=== PATIENT | male | born 2000 | race Caucasian/White ===

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

== ENCOUNTER 2020-08-26 19:14 | Emergency (ER) | payer SELFPAY ==
[2020-08-26] VITALS (10 sets, daily range): BP systolic 126–151; BP diastolic 64–85; PULSE 53–87; RESP 14–22; TEMP 36.6; O2SAT 93–100; BMI 20.3
--- NOTE | 2020-08-26 19:39 | XRR_ITS ---
PROCEDURE INFORMATION: Exam: XR Right Finger(s) Exam date and time: 08/26/2020 7:42 PM Age: 20 years old Clinical indication: Injury or trauma; Puncture; Middle finger; Injury date: 08/26/2020; Injury details: Moving wood - copperhead snake bit right hand - 3rd digit; Patient HX: Snake bite x today - right hand - 3rd digit TECHNIQUE: Imaging protocol: XR Right fingers. Views: Minimum 2 views. COMPARISON: No relevant prior studies available. FINDINGS: Bones/joints: No fracture is identified. Soft tissues: There is soft tissue swelling of the middle finger. No opaque foreign body is seen. XR/XR finger RT min 2V 11220 IMPRESSION: 1. Soft tissue swelling. 2. No fracture is identified.
--- NOTE | 2020-08-26 19:39 | W.ED.ANIMALB ---
HPI - Animal Bite General: Chief Complaint: Animal Bite Stated Complaint: snake bite Time Seen by Provider: 08/26/20 19:27 History of Present Illness: HPI narrative: Patient is a healthy 20-year-old male seen for snake bite to the right long finger. He is right-hand dominant. He states that he was lifting up a cinder block when a full-grown copperhead bit him on the pad of his distal right long finger. He had immediate pain which got worse with time. He arrives in emergency department roughly 30 minutes after experiencing the bite. He describes 10 of 10 pain which is worse with any motion of the finger. He states that the swelling is migrated to his hand and now he has pain in the adjacent fingers as well. She denies any allergies to medications and has no other known medical problems and has no other acute complaints. Review of Systems General: Reports: 10 or more systems reviewed and unremarkable except in HPI and below PFSH ED PFSH: Social History Smoking and tobacco status: current every day smoker Physical Exam Const: COMMON NORMALS: patient oriented x3 and alert GENERAL APPEARANCE: in distress (Mild) HENMT: COMMON NORMALS: normocephalic and atraumatic HEAD & SCALP: normocephalic and atraumatic Eye: COMMON NORMALS: Equal, round and reactive pupils present, EOMs intact bilaterally and no scleral icterus PUPIL: Yes Equal, round and reactive pupils present Resp: COMMON NORMALS: normal respiratory effort and No retractions Cardio: COMMON NORMALS: regular rate, regular rhythm and No murmurs present (Cardio) RATE: regular rate RHYTHM: regular rhythm GI: COMMON NORMALS: Normal to inspection, nondistended, normoactive bowel sounds present, Soft to palpation and non-tender PALPATION: Yes Soft to palpation Extremity: RIGHT UPPER EXTREMITY: Yes hand & digits OTHER: Right hand has several findings. Most prominently, his right long finger is mildly swollen and mildly pale, with worst pain with flexion of the digit. He prefers extension. There is mild swelling just proximal to the long finger on the dorsum of the hand. There is no erythema and no necrosis. Though the finger is swollen, it is not firm and I do not suspect compartment syndrome at this time. Neuro: COMMON NORMALS: patient oriented x3 SENSORIUM/ORIENTATION: Yes alert Skin: COMMON NORMALS: no rashes or lesions noted GENERAL SKIN EXAM: no rashes or lesions noted Course Vital Signs: Vital signs: Vital Signs Temperature 98.4 F 08/27/20 03:18 Pulse Rate 114 H 08/27/20 03:18 Respiratory Rate 17 08/27/20 03:18 Blood Pressure 134/95 08/27/20 03:18 Pulse Oximetry 96 08/27/20 03:18 MDM - Animal Bite MDM Narrative: Medical decision making narrative: Patient arrived in mild distress with copperhead envenomation of his distal right long finger. As time went on, swelling progressed to the hand and just above the wrist. He was given multiple doses of fentanyl for pain and then switched to Dilaudid. Coagulation factors and fibrinogen are normal. Vital signs remained stable. I do not suspect systemic toxicity nor do I suspect compartment syndrome of the fingers or hand. He was observed in the emergency department for greater than 6 hours during which time pain levels decreased and vital signs remained completely stable. He did form some hemorrhagic blisters on various parts of the finger which was benign, however despite the swelling, sensation remains intact and distal capillary refill is brisk. I do not feel he requires CroFab therapy nor admission to the hospital. As such, he was transitioned to oral morphine and he will be discharged with a prescription for the same and follow-up to general surgery to ensure that the swelling decreases in appropriate fashion. Return precautions were discussed at length and he knows he should return should he have worsening numbness, tingling, pain, or warmth and redness concerning for infection. He shows good understanding and agrees to the plan. Lab Data: Labs: Lab Results 08/26/20 08/26/20 08/26/20 Range/Units 19:25 19:25 19:25 WBC 10.9 (4.5-13.0) 10^3/ uL RBC 4.71 (4.1-5.3) 10^6/u L Hgb 14.7 (11.7-16.6) g/dL Hct 42.7 (42.0-52.0) % MCV 90.7 (80-94) fL MCH 31.2 (28.0-34.0) pg MCHC 34.4 (30.0-36.0) g/dL RDW 11.4 L (12.1-15.1) % Plt Count 251 (130-400) 10^3/c mm MPV 11.8 H (7.4-10.4) fL Neut % (Auto) 57.7 % Lymph % (Auto) 30.0 % [place] % (Auto) 8.4 % Eos % (Auto) 2.0 % Baso % (Auto) 1.6 % Neut # (Auto) 6.28 (1.8-8.0) 10^3/u L Lymph # (Auto) 3.3 (1.5-6.5) 10^3/u L [place] # (Auto) 0.9 (0.2-0.9) 10^3/u L Eos # (Auto) 0.2 (0.0-0.8) 10^3/u L Baso # (Auto) 0.2 H (0.0-0.1) 10^3/u L Nucleated RBC % (a uto) 0 % Nucleated RBCs # 0.0 /100WBC PT 15.20 H (12.1-14.9) SECO NDS INR 1.16 (0.8-1.2) APTT 24.5 (23.9-36.7) SECO NDS Fibrinogen 231 (174-498) mg/dL Sodium 140 (136-145) mmol/L Potassium 3.6 (3.5-5.1) mmol/L Chloride 100 (98-107) mmol/L Carbon Dioxide 23 (22-29) mmol/L Anion Gap 20.6 H (5-19) BUN 15 (6-20) mg/dL Creatinine 1.1 (0.7-1.2) mg/dL GFR Calculation 85.3 L (90-130) mL/min Glucose 127 H (65-115) mg/dL Calculated Osmolal ity 292 (285-295) mOsm/k g Calcium 8.8 (8.5-10.5) mg/dL Total Bilirubin 0.8 (0.15-1.2) mg/dL AST 19 (0-40) U/L ALT 12 (0-41) U/L Alkaline Phosphata se 83 (40-130) IU/L Total Protein 7.1 (6.6-8.7) g/dL Albumin 5.2 (3.5-5.2) g/dL Globulin 1.9 (1.3-4.6) g/dL 05/25/21 Range/Units 01:51 WBC (4.5-13.0) 10^3/ uL RBC (4.1-5.3) 10^6/u L Hgb (11.7-16.6) g/dL Hct (42.0-52.0) % MCV (80-94) fL MCH (28.0-34.0) pg MCHC (30.0-36.0) g/dL RDW (12.1-15.1) % Plt Count (130-400) 10^3/c mm MPV (7.4-10.4) fL Neut % (Auto) % Lymph % (Auto) % [place] % (Auto) % Eos % (Auto) % Baso % (Auto) % Neut # (Auto) (1.8-8.0) 10^3/u L Lymph # (Auto) (1.5-6.5) 10^3/u L [place] # (Auto) (0.2-0.9) 10^3/u L Eos # (Auto) (0.0-0.8) 10^3/u L Baso # (Auto) (0.0-0.1) 10^3/u L Nucleated RBC % (a uto) % Nucleated RBCs # /100WBC PT 15.40 H (12.1-14.9) SECO NDS INR 1.18 (0.8-1.2) APTT 28.9 (23.9-36.7) SECO NDS Fibrinogen 234 (174-498) mg/dL Sodium (136-145) mmol/L Potassium (3.5-5.1) mmol/L Chloride (98-107) mmol/L Carbon Dioxide (22-29) mmol/L Anion Gap (5-19) BUN (6-20) mg/dL Creatinine (0.7-1.2) mg/dL GFR Calculation (90-130) mL/min Glucose (65-115) mg/dL Calculated Osmolal ity (285-295) mOsm/k g Calcium (8.5-10.5) mg/dL Total Bilirubin (0.15-1.2) mg/dL AST (0-40) U/L ALT (0-41) U/L Alkaline Phosphata se (40-130) IU/L Total Protein (6.6-8.7) g/dL Albumin (3.5-5.2) g/dL Globulin (1.3-4.6) g/dL Critical Care Time Critical Care Time: Critical Care Time: Yes Total Critical Care Time: 74 Attestation: This case had a high probability of a clinically significant, sudden, or life threatening deterioration of this patient's condition which required my full and direct attention, intervention and personal management. Discharge Plan Discharge Patient Disposition: Home Clinical Impression: Localized swelling on right hand, Swelling of right ring finger Snake envenomation Qualifiers: Encounter type: initial encounter Injury intent: accidental or unintentional Qualified Code(s): T63.001A - Toxic effect of unspecified snake venom, accidental (unintentional), initial encounter Condition: Stable Prescriptions: New morphine 15 mg tablet 15 mg PO Q8H PRN (Reason: pain) Qty: 30 RF: 0 No Action No Known Home Medications RF: 0 Discharge Orders: Discharge ED (Routine); Ordered 08/27/20 Ordered By: Devendra Lopez Discharge Diet: Usual diet Discharge Activity: Limit activity as instructed Patient Instructions: Opioid Safety Activity Restrictions/Additional Instructions: You were bit by a copperhead and have swelling of the fingers and hand and arm consistent with localized swelling secondary to envenomation. The blood-filled blisters are typical and should resolve without need for antibiotics or specialized medicine. [facility] site manager will contact physicians to follow-up with you to make sure that you are wound heals appropriately and does not become infected. If your pain gets out of control or if you feel that you are losing circulation in the tips your fingers, please do not hesitate to return the emergency department and we can expedite the needed steps to make sure that your hand remains safe. Please take the morphine pills as prescribed. It is also safe to take Tylenol and ibuprofen if you so wish. Coding Level of Care Code ED Cinder Crusher Operator for Donavon Beatty Exam Comprehensive
[2020-08-26] MEDS: fentaNYL 50 mcg/mL INJ 2mL 75 MCG IVP (19:44)
[2020-08-26 20:01] LABS: Basophils # 0.2 10^3/uL (0.0-0.1); Basophils % 1.6 %; Eosinophils # 0.2 10^3/uL (0.0-0.8); Hematocrit 42.7 % (42.0-52.0); Hemoglobin 14.7 g/dL (11.7-16.6); Lymphocytes # 3.3 10^3/uL (1.5-6.5); Mean Corpuscular HGB Conc 34.4 g/dL (30.0-36.0); Mean Corpuscular Hemoglobin 31.2 pg (28.0-34.0); Mean Corpuscular Volume 90.7 fL (80-94); Mean Platelet Volume 11.8 fL (7.4-10.4); Monocytes # 0.9 10^3/uL (0.2-0.9); Monocytes % 8.4 %; Neutrophils # 6.28 10^3/uL (1.8-8.0); Neutrophils % 57.7 %; Nucleated Red Blood Cells % 0 %; Platelet Count 251 10^3/cmm (130-400); Red Blood Count 4.71 10^6/uL (4.1-5.3); Red Cell Distribution Width 11.4 % (12.1-15.1); White Blood Count 10.9 10^3/uL (4.5-13.0)
[2020-08-26 20:05] LABS: INR 1.16 (0.8-1.2)
[2020-08-26 20:06] LABS: Partial Thromboplastin Time 24.5 SECONDS (23.9-36.7)
[2020-08-26 20:07] LABS: Fibrinogen 231 mg/dL (174-498)
[2020-08-26 20:11] LABS: Alanine Aminotransferase 12 U/L (0-41); Albumin Level 5.2 g/dL (3.5-5.2); Alkaline Phosphatase 83 IU/L (40-130); Anion Gap 20.6 (5-19); Aspartate Amino Transferase 19 U/L (0-40); Blood Urea Nitrogen 15 mg/dL (6-20); Calcium 8.8 mg/dL (8.5-10.5); Carbon Dioxide 23 mmol/L (22-29); Chloride 100 mmol/L (98-107); Globulin 1.9 g/dL (1.3-4.6); Glomerular Filtration Rate 85.3 mL/min (90-130); Glucose 127 mg/dL (65-115); Osmolality Calculated 292 mOsm/kg (285-295); Potassium 3.6 mmol/L (3.5-5.1); Sodium 140 mmol/L (136-145); Total Bilirubin 0.8 mg/dL (0.15-1.2); Total Protein 7.1 g/dL (6.6-8.7)
[2020-08-26] MEDS: fentaNYL 50 mcg/mL INJ 2mL IVP ×5 (20:24→23:52)
[2020-08-26] MEDS: ondansetron 2 mg/ML SDV 2 mL 4 MG IVP (21:07)
[2020-08-26] MEDS: HYDROmorphone 1 mg/mL INJ 1 mL IVP (21:10)
--- NOTE | 2020-08-26 21:31 | PC.NURSE ---
pt having episodes of yelling, cursing, pacing. pt states that this is due to his pain. pain medication has been administered. pt friend present at bedside. pt friend cursing and stepping into doorway and hallway yelling for/at staff. pain medication administered as ordered. pt education provided on pain management. pt friend states that he is timing staff on when pain medication is administered and due next. pt and pt friend provided education on staying in the exam room and appropriate behavior towards staff. pt and pt friend verbalizes understanding. Charge nurse notified. John MONTALVO notified.
[2020-08-27 00:33] VITALS: RESP 18; O2SAT 96
[2020-08-27] MEDS: HYDROmorphone 1 mg/mL INJ 1 mL IVP ×2 (00:33→01:49)
[2020-08-27] MEDS: LORazepam 2 mg/mL INJ 1 mL 0.5 MG IVP (00:34)
[2020-08-27 01:30] VITALS: BP 142/69; PULSE 91; RESP 20; O2SAT 97
[2020-08-27 01:49] VITALS: RESP 15; O2SAT 97
[2020-08-27 02:14] LABS: INR 1.18 (0.8-1.2)
[2020-08-27 02:15] LABS: Partial Thromboplastin Time 28.9 SECONDS (23.9-36.7)
[2020-08-27 02:20] LABS: Fibrinogen 234 mg/dL (174-498)
--- NOTE | 2020-08-27 03:17 | PC.NURSE ---
Patient sent home with 1 tablet morphine (ER) 15mg PO to take for pain per provider order.
[2020-08-27 03:18] VITALS: BP 134/95; PULSE 114; RESP 17; TEMP 36.9; O2SAT 96
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
--- NOTE | 2020-08-28 10:29 | DCPLANNER ---
Addendum entered by Elena Kenney 08/28/20 10:59: Tita from General Surgery, contacted case packer, stated that she called patient and would schedule him for today. Patient told general surgery that he was on his way to [facility] in [facility]. Patient declined appointment. Original Note: dot compliance manager called to speak with patient about follow up appointments. dot compliance manager spoke with patient, he stated that he would like those appointments scheduled. dot compliance manager tried to transfer patient to general surgery, phone call to patient was lost before the transfer was completed. dot compliance manager did speak with Tita at General Surgery about patient, clinic will call patient to schedule follow up. dot compliance manager called Wound Care, spoke with Devorah, a follow up appointment is scheduled for Sunday, August 30, 2020 at 1:[address] Judge. dot compliance manager gave patient the appointment information.
--- NOTE | 2020-08-30 13:44 | DCPLANNER ---
Patient had a follow up appointment scheduled for 08.30.20 with Wound Care - patient did not attend appointment.
== END 2020-08-27 03:21 | disposition home or self-care (01) ==
PROVIDERS: Emergency Provider Student in an Organized Health Care Education/Training Program
DX: T63.091A Toxic effect of venom of other snake, accidental (unintentional), initial encounter (principal); F17.210 Nicotine dependence, cigarettes, uncomplicated
CPT/HCPCS: 36415; 73140; 80053; 85025; 85384; 85610; 85730; 96374; 96375; 96376; 99284; J1170; J2060; J2405; J3010

== ENCOUNTER 2020-10-20 21:43 | Emergency (ER) | payer SELFPAY ==
[2020-10-20 22:22] VITALS: BP 138/67; PULSE 71; RESP 19; TEMP 36.9; O2SAT 99; BMI 20.3
--- NOTE | 2020-10-20 23:26 | ED_ITS ---
HPI - Abdominal Pain General: Chief Complaint: Abdominal Pain Stated Complaint: Pain stomach thru to back Time Seen by Provider: 10/20/20 23:15 History of Present Illness: HPI narrative: Patient complains of abdominal pain epigastric area x2 days. MD elicited complaint: abdominal pain Onset (ago): day(s) Pain Consistency: constant Location: Epigastric and LUQ Severity: mild Quality: aching Radiation: back and other Associated Symptoms: Reports no associated symptoms; Denies chills, fever(s), nausea and vomiting Review of Systems Const: Denies: fever(s), chills or body aches Eyes: Denies: change in vision or blurry vision ENMT: Denies: throat pain or nasal congestion Card: Denies: chest pain or dyspnea on exertion Resp: Denies: dyspnea, productive cough or non-productive cough GI: Reports: abdominal pain; Denies: nausea or vomiting : Denies: difficulty urinating Musc: Denies: extremity pain Skin/Breast: Denies: rash Neuro: Denies: headache(s) Psych: Denies: anxiety or depression Foster/Lymph: Denies: easy bruising PFSH ED PFSH: Social History Smoking and tobacco status: current every day smoker Physical Exam Const: COMMON NORMALS: no acute distress, average body habitus and patient oriented x3 HENMT: COMMON NORMALS: normocephalic HEAD & SCALP: normal to inspection and normocephalic FACE & SINUS: normal facial exam Eye: COMMON NORMALS: conjunctivae normal GENERAL EYE: appearance normal, both eyes and all related structures CONJUNCTIVA: Yes conjunctivae normal Neck/C-Spine: COMMON NORMALS: no JVD Chest: COMMONS NORMALS: normal inspection of the chest Resp: COMMON NORMALS: normal respiratory effort and clear to auscultation bilaterally AUSCULTATION: clear to auscultation bilaterally Cardio: COMMON NORMALS: no JVD, regular rate and regular rhythm RATE: regular rate RHYTHM: regular rhythm GI: COMMON NORMALS: Normal to inspection, nondistended, normoactive bowel sounds present AUSCULTATION: Yes Hypoactive bowel sounds present PALPATION: Yes Tenderness to palpation present (GI) Details: other (Epigastric area) Extremity: COMMON NORMALS: normal to inspection and full ROM Neuro: COMMON NORMALS: patient oriented x3 Course Vital Signs: Vital signs: Vital Signs Temperature 98.4 F 10/20/20 22:22 Pulse Rate 47 L 10/20/20 23:57 Respiratory Rate 16 10/20/20 23:57 Blood Pressure 142/86 10/20/20 23:57 Pulse Oximetry 98 10/20/20 23:57 MDM - Abdominal Pain MDM Narrative: Medical decision making narrative: GI cocktail relieved pain. Patient's KUB showed constipation most likely related to his morphine sulfate in take that he had prescribed for his envenomation of his finger. Patient instructed to have high-fiber diet use magnesium citrate to take prosthetic for his reflux do not taking more pain medication. Follow-up your primary care provider Lab Data: Labs: Lab Results 10/20/20 10/20/20 Range/Units 23:40 23:40 WBC 8.6 (4.5-13.0) 10^3/ uL RBC 5.17 (4.1-5.3) 10^6/u L Hgb 16.0 (11.7-16.6) g/dL Hct 47.5 (42.0-52.0) % MCV 91.9 (80-94) fL MCH 30.9 (28.0-34.0) pg MCHC 33.7 (30.0-36.0) g/dL RDW 11.2 L (12.1-15.1) % Plt Count 198 (130-400) 10^3/c mm MPV 11.6 H (7.4-10.4) fL Neut % (Auto) 72.7 % Lymph % (Auto) 17.0 % [place] % (Auto) 7.7 % Eos % (Auto) 1.1 % Baso % (Auto) 1.3 % Neut # (Auto) 6.23 (1.8-8.0) 10^3/u L Lymph # (Auto) 1.5 (1.5-6.5) 10^3/u L [place] # (Auto) 0.7 (0.2-0.9) 10^3/u L Eos # (Auto) 0.1 (0.0-0.8) 10^3/u L Baso # (Auto) 0.1 (0.0-0.1) 10^3/u L Nucleated RBC % (a uto) 0 % Nucleated RBCs # 0.0 /100WBC Sodium 136 (136-145) mmol/L Potassium 3.9 (3.5-5.1) mmol/L Chloride 97 L (98-107) mmol/L Carbon Dioxide 26 (22-29) mmol/L Anion Gap 16.9 (5-19) BUN 8 (6-20) mg/dL Creatinine 1.0 (0.7-1.2) mg/dL GFR Calculation 95.3 (90-130) mL/min Glucose 110 (65-115) mg/dL Calculated Osmolal ity 281 L (285-295) mOsm/k g Calcium 10.8 H (8.5-10.5) mg/dL Discharge Plan Discharge Patient Disposition: Home Clinical Impression: Heartburn Constipation Qualifiers: Constipation type: drug induced constipation Qualified Code(s): K59.03 - Drug induced constipation Condition: Stable Prescriptions: New omeprazole 20 mg tablet,delayed release (DR/EC) 20 mg PO DAILY Qty: 14 RF: 0 magnesium citrate Solution 300 ml PO BID PRN (Reason: constipation) Qty: 296 RF: 0 No Action morphine 15 mg tablet 15 mg PO Q8H PRN (Reason: pain) Qty: 30 RF: 0 Discharge Orders: Discharge ED (Routine); Ordered 10/21/20 Ordered By: Khai Paul Discharge Diet: As Directed Discharge Activity: Resume usual activity Patient Instructions: Heartburn, Constipation (ED) Activity Restrictions/Additional Instructions: Follow-up with medical provider as directed. Take medications as prescribed. Return to the ER or your medical provider if condition worsens. Please read and understand discharge instructions. If any questions ask please. Coding Level of Care Code ED Political Anthropologist for Donavon Fwd Exam Comprehensive
[2020-10-20 23:27] VITALS: PULSE 50; RESP 16; O2SAT 97
--- NOTE | 2020-10-20 23:27 | XRR_ITS ---
PROCEDURE INFORMATION: Exam: XR Abdomen Exam date and time: 10/20/2020 11:27 PM Age: 20 years old Clinical indication: Abdominal pain; Localized; Left upper quadrant (luq); Additional info: Abd pain TECHNIQUE: Imaging protocol: XR of the abdomen. Views: Frontal supine view of the abdomen. 1 View. COMPARISON: No relevant prior studies available. FINDINGS: Gastrointestinal tract: Normal. No bowel dilation. Bones/joints: Unremarkable. XR/XR KUB portable [id number] IMPRESSION: No acute findings.
[2020-10-20 23:47] LABS: Basophils # 0.1 10^3/uL (0.0-0.1); Basophils % 1.3 %; Eosinophils # 0.1 10^3/uL (0.0-0.8); Eosinophils % 1.1 %; Hematocrit 47.5 % (42.0-52.0); Lymphocytes # 1.5 10^3/uL (1.5-6.5); Mean Corpuscular HGB Conc 33.7 g/dL (30.0-36.0); Mean Corpuscular Hemoglobin 30.9 pg (28.0-34.0); Mean Corpuscular Volume 91.9 fL (80-94); Mean Platelet Volume 11.6 fL (7.4-10.4); Monocytes # 0.7 10^3/uL (0.2-0.9); Monocytes % 7.7 %; Neutrophils # 6.23 10^3/uL (1.8-8.0); Neutrophils % 72.7 %; Nucleated Red Blood Cells % 0 %; Platelet Count 198 10^3/cmm (130-400); Red Blood Count 5.17 10^6/uL (4.1-5.3); Red Cell Distribution Width 11.2 % (12.1-15.1); White Blood Count 8.6 10^3/uL (4.5-13.0)
[2020-10-20] MEDS: lidocaine 2% viscous 15 ML, aluminum-mag hydrox-simethicon 30 ML, sucralfate oral liq 1 GM PO (23:47)
[2020-10-20 23:57] VITALS: BP 142/86; PULSE 47; RESP 16; O2SAT 98
[2020-10-21 00:10] LABS: Anion Gap 16.9 (5-19); Blood Urea Nitrogen 8 mg/dL (6-20); Calcium 10.8 mg/dL (8.5-10.5); Carbon Dioxide 26 mmol/L (22-29); Chloride 97 mmol/L (98-107); Glomerular Filtration Rate 95.3 mL/min (90-130); Glucose 110 mg/dL (65-115); Osmolality Calculated 281 mOsm/kg (285-295); Potassium 3.9 mmol/L (3.5-5.1); Sodium 136 mmol/L (136-145)
--- NOTE | 2020-10-21 00:59 | PC.NURSE ---
this nurse took over care on this patient from AMY Ramires at 0015.
[2020-10-21 01:04] VITALS: BP 122/71; PULSE 80; RESP 16; O2SAT 98
== END 2020-10-21 01:06 | disposition home or self-care (01) ==
PROVIDERS: Emergency Provider Nurse Practitioner Family
DX: K59.03 Drug induced constipation (principal); R12 Heartburn; F17.210 Nicotine dependence, cigarettes, uncomplicated
CPT/HCPCS: 74018; 80048; 85025

== ENCOUNTER 2022-11-12 09:10 | Emergency (ER) | payer SELFPAY ==
[2022-11-12 09:25] VITALS: BMI 24.4
[2022-11-12 09:33] VITALS: BP 128/85; PULSE 92; RESP 16; TEMP 36.8; O2SAT 97
--- NOTE | 2022-11-12 09:39 | ED_ITS ---
HPI - Wound/Laceration General: Chief Complaint: Wound/Laceration Stated Complaint: etoh, lac to finger Time Seen by Provider: 11/12/22 09:39 History of Present Illness: left prior to my eval [facility] ED PFSH: Social History Smoking and tobacco status: current every day smoker Course Vital Signs: Vital signs: Vital Signs Temperature 98.2 F 11/12/22 09:33 Pulse Rate 92 11/12/22 09:33 Respiratory Rate 16 11/12/22 09:33 Blood Pressure 128/85 11/12/22 09:33 Pulse Oximetry 97 11/12/22 09:33 Oxygen Delivery Me thod Room Air 11/12/22 09:33 MDM - Wound/Laceration Medical Decision Making Patient left prior to my evaluation. Lab Data Laboratory Results POC Glucose 93 mg/dL (70-110) 11/12/22 09:53 Discharge Plan Discharge Patient Disposition: Left Against Medical Advice Clinical Impression: Abrasion Condition: Stable Prescriptions: No Action morphine 15 mg tablet 15 mg PO Q8H PRN (Reason: pain) Qty: 30 0RF omeprazole 20 mg tablet,delayed release (DR/EC) 20 mg PO DAILY Qty: 14 0RF magnesium citrate Solution 300 ml PO BID PRN (Reason: constipation) Qty: 296 0RF Coding Level of Care Code ED Home [employer] Disclosure Act Specialist for Donavon Beatty
[2022-11-12 09:58] LABS: Glucose Point of Care 93 mg/dL (70-110)
== END 2022-11-12 10:00 | disposition left against medical advice (07) ==
PROVIDERS: Emergency Provider Emergency Medicine
DX: Z53.21 Procedure and treatment not carried out due to patient leaving prior to being seen by health care provider (principal); S61.214A Laceration without foreign body of right ring finger without damage to nail, initial encounter; X58.XXXA Exposure to other specified factors, initial encounter
CPT/HCPCS: 36416; 82962; 99283